=== PATIENT | female | born 2000 | race Caucasian/White ===

== ENCOUNTER 2020-03-25 21:07 | Outpatient (REF) | payer BC, SELFPAY ==
[2020-03-25 22:23] LABS: HCT 43.1 % (36.0-46.0); HGB 14.3 g/dL (11.2-15.7); MCH 31.2 pg (27.0-33.0); MCHC 33.2 % (32.0-36.0); MCV 94.1 fL (80-95); MPV 11.1 fL (8.0-11.0); Platelet Count 280 10^3/uL (130-400); RBC 4.58 10^6/uL (3.93-5.22); RDW 12.1 % (11.7-14.6); RDW-SD 42.2 fL; WBC 7.49 10^3/uL (4.4-10.8)
[2020-03-25 23:02] LABS: ALT 18 U/L (14-59); AST 19 U/L (15-37); Alkaline Phosphatase 54 U/L (46-116); Anion Gap 9.4 mmol/L (3-11); BUN 16 mg/dL (7-18); Bilirubin, Total 1.2 mg/dL (0.2-1.0); CO2 24.6 mmol/L (21.0-32.0); CREATININE 0.93 mg/dL (0.55-1.02); Calcium 8.9 mg/dL (8.5-10.1); Glucose 85 mg/dL (74-106); TSH (W/Ref FT4) 1.18 uIU/mL (0.36-3.74); Total Protein 7.1 g/dL (6.4-8.2)
[2020-03-25 23:24] LABS: Chloride 107 mmol/L (98-107); Potassium 4.4 mmol/L (3.5-5.1); Sodium 141 mmol/L (136-145)
== END 2020-03-25 21:27 ==
LOC: NCHCN 21:07
PROVIDERS: Visit Provider Nurse Practitioner Community Health
DX: R63.4 Abnormal weight loss (principal)
CPT/HCPCS: 80053; 85027; 84443

== ENCOUNTER 2020-12-15 14:58 | Outpatient (REF) | payer BC, SELFPAY ==
[2020-12-15 13:37] LABS: TSH (W/Ref FT4) 2.33 uIU/mL (0.36-3.74)
== END 2020-12-15 14:59 | disposition home or self-care (01) ==
LOC: NCHCN 14:58
PROVIDERS: Visit Provider Nurse Practitioner Family
DX: Z00.00 Encounter for general adult medical examination without abnormal findings (principal); Z01.818 Encounter for other preprocedural examination
CPT/HCPCS: 84443